=== PATIENT | male | born 1940 | race Caucasian/White ===

== ENCOUNTER 2023-01-24 16:40 | Emergency (ER) | payer MEDICARE, SELFPAY ==
[2023-01-24 16:47] VITALS: BP 128/65; PULSE 99; RESP 18; TEMP 36.9; O2SAT 98; BMI 21.9
--- NOTE | 2023-01-24 16:50 | ED_ITS ---
HPI - Extremity Problem General Chief complaint: Extremity Problem, Nontraumatic Stated complaint: LEG PAIN, SWOLLEN Time Seen by Provider: 01/24/23 16:49 Source: patient and family Source comment: azerbaijani Limitations: language barrier History of Present Illness HPI Narrative: Patient presents to emergency department left medial ankle pain. Patient states he had an accident when he fell off a bridge appears ago. He states in the last week she's had increased pain to his left ankle. He has a history of a CVA which has caused him to become confused than normal. This is not an anything acute. Family states today he is complaining of increased pain and has not been able to walk because of the pain to his medial ankle. He has not taking anything at home for the pain. He denies any recent known injury. He denies any fever, chills, or cough. He denies any chest pain, or shortness of breath. He denies any paresthesias, or weakness. Related Data Previous Rx's Medication Instructions Recorded methylprednisolone 4 mg tablets in 4 mg PO DAILY #21 ea 01/24/23 a dose pack (Medrol (Onel)) Allergies Allergy/AdvReac Type Severity Reaction Status Date / Time No Known Drug Allergies Allergy Verified 01/24/23 16:58 Review of Systems ROS Status of ROS 10 or more systems reviewed and unremarkable except as noted in history and below Exam Narrative Exam Narrative: Nurses notes and vital signs reviewed and patient is not hypoxic. General: Nontoxic, Elderly, frail, chronically ill, and in no apparent distress. Skin: Warm, dry, no pallor noted. No Rash Head: Normocephalic, atraumatic. Neck: Supple, non-tender. Eye: Pupils are equal, round and EOMI. No scleral icterus. Ears, Nose, Mouth, and Throat: TM clear, no posterior oropharynx erythema or nasal mucosal hypertrophy, uvula is mid-line Oral mucosa is moist Cardiovascular: Regular Rate and Rhythm without murmur, gallop or rub. Respiratory: No accessory muscle use or respiratory distress. Lungs are clear to auscultation, no wheezing, rales or rhonchi Chest Wall: no tenderness Back: No midline thoracic or lumbar vertebral tenderness. No CVA tenderness Musculoskeletal: Tenderness to palpation to the distal tibia and superior medial malleolus on the left. There is no warmth, erythema, edema, proximal streaking noted. Patient is very tender to palpation and range of motion is limited by pain.No palpable cords, no popliteal tenderness, no lower extremity edema/swelling, dp +2, tp+2 GI: Abdomen is soft, non-distended. Normal bowel sounds. No masses appreciated. No tenderness to palpation. No rebound, guarding, or rigidity noted. Neurological: A&O x2. No cranial nerve dysfunction observed. poor memory, Moves all extremities. Psychiatric: Cooperative and interactive. Normal mood and affect. Constitutional Vital Signs, click to edit/add: Last Vital Signs Temp 98.4 F 01/24/23 16:47 Pulse 100 H 01/24/23 18:14 Resp 18 01/24/23 18:14 BP 108/67 01/24/23 18:14 Pulse Ox 97 01/24/23 18:14 O2 Del Method Room Air 01/24/23 16:47 Course Vital Signs Vital signs: Vital Signs Temperature 98.4 F 01/24/23 16:47 Pulse Rate 99 H 01/24/23 16:47 Respiratory Rate 18 01/24/23 16:47 Blood Pressure 128/65 H 01/24/23 16:47 Pulse Oximetry 98 01/24/23 16:47 Oxygen Delivery Method Room Air 01/24/23 16:47 Temperature 98.4 F 01/24/23 16:47 Pulse Rate 100 H 01/24/23 18:14 Respiratory Rate 18 01/24/23 18:14 Blood Pressure 108/67 01/24/23 18:14 Pulse Oximetry 97 01/24/23 18:14 Oxygen Delivery Method Room Air 01/24/23 16:47 MDM - Extremity (Nontraumatic) MDM Narrative Medical decision making narrative: Patient is a poor historian. He is very hard of hearing. Because he has slight tachycardia, blood work was ordered. And patient was given oral potassium and steroids. He felt better and was able to ambulate. Patient is to follow up with primary care doctor. At this time the patient is without objective evidence of an acute process requiring hospitalization or inpatient management. The patient has remained hemodynamically stable. No additional indication for emergent studies at this time. I answered all questions. Discussed discharge instructions including standard anticipatory guidance and what should prompt a return to the emergency department, including if they get worse are not getting better or develops any new or concerning symptoms. I've given them specific time frame in which to follow-up, and who to follow-up with. The patient demonstrates understanding. Patient is nontoxic and stable for discharge with outpatient follow-up. This note was created with the assistance of a speech recognition program. Although the intention is to generate documents that actually reflects the content of the visit, no guarantees can be provided that every mistake has been identified and corrected by editing. Differential Diagnosis Differential diagnosis: Likely herpes zoster, gout, cellulitis, lower extremity edema and deep vein thrombosis of lower extremity Lab Data Attestation: I reviewed the patient's lab results. Labs: Lab Results 01/24/23 Range/Units 17:10 WBC 13.1 H (4.0-11.0) 10^3/uL RBC 3.92 L (4.70-6.10) 10^6/uL Hgb 13.3 L (14.0-18.0) g/dL Hct 37.1 L (42.0-54.0) % MCV 94.6 H (80.0-94.0) fL MCH 33.9 (25.9-34.0) pg MCHC 35.8 H (29.9-35.2) g/dL RDW 12.1 (11.0-15.0) % Plt Count 189 (150-450) 10^3/uL MPV 10.2 (9.5-13.5) fL Neut % (Auto) 81.7 H (43.0-75.0) % Lymph % (Auto) 12.4 L (20.5-60.0) % [place] % (Auto) 4.7 (1.7-12.0) % Eos % (Auto) 0.5 L (0.9-7.0) % Baso % (Auto) 0.3 (0.2-2.0) % Neut # (Auto) 10.7 H (1.4-6.5) 10^3/uL Lymph # (Auto) 1.6 (1.2-3.8) 10^3/uL [place] # (Auto) 0.6 (0.3-0.8) 10^3/uL Eos # (Auto) 0.1 (0.0-0.7) 10^3/uL Baso # (Auto) 0.0 (0.0-0.1) 10^3/uL Abs Immat Gran (auto) 0.05 H (0.00-0.03) 10^3/uL Imm/Tot Granulo (auto) 0.4 (0.0-0.5) % ESR 92 H (<=20) mm/hr Sodium 135 L (136-145) mmol/L Potassium 2.9 L* (3.5-5.1) mmol/L Chloride 97 L (98-107) mmol/L Carbon Dioxide 26.3 (21.0-32.0) mmol/L Anion Gap 14.6 BUN 12.0 (7.0-18.0) mg/dL Creatinine 1.10 (0.70-1.30) mg/dL Est GFR ( Amer) >60 (>=60) Est GFR (Non-Af Amer) >60 (>=60) BUN/Creatinine Ratio 10.9 Glucose 155 H (74-106) mg/dL Uric Acid 8.4 H (3.5-7.2) mg/dL Calcium 9.1 (8.5-10.1) mg/dL C-Reactive Protein 2.6 H (<=1.0) mg/dL Discharge Plan Discharge Chief Complaint: Extremity Problem, Nontraumatic Clinical Impression: Gout, Acute hypokalemia Patient Disposition: Home, Self-Care Time of Disposition Decision: 17:56 Condition: Good Mode of Transportation: Private Vehicle Prescriptions / Home Meds: New methylprednisolone [Medrol (Onel)] 4 mg tablets,dose pack 4 mg PO DAILY Qty: 21 0RF Print Language: Swedish Instructions: Potassium Content of Foods List (ED), Gout (ED) Stand Alone Forms: Portal Instructions Referrals: Physician,Non-Staff, MD [Primary Care Provider] - 1 week Discharge Date/Time: 01/24/23 18:27
--- NOTE | 2023-01-24 17:01 | XR_ITS ---
[address] [address] Patient Name: DEREK FARFAN MRN: [id number] date: 1940 Sex: M Assigned Patient Location: ER Current Patient Location: ED.MAIN Accession/Order Number: [id number] Exam Date: 01/24/2023 17:32 Report Date: 01/24/2023 18:12 At the request of: BALBIR MORA Procedure: XR ankle LT min 3V Exam: Radiographs: XR ankle LT min 3V Reason for exam: pain Comparison: None XR/XR ankle LT min 3V IMPRESSION: Mild soft tissue swelling. Degenerative changes scattered throughout the left ankle. Extensive atherosclerotic calcifications. Remainder of the left ankle is unremarkable. Electronically authenticated by: CRISTINA SIEGEL Date: 01/24/2023 18:12
[2023-01-24 17:18] LABS: Basophils Percent Auto 0.3 % (0.2-2.0); Eosinophils Absolute Auto 0.1 10^3/uL (0.0-0.7); Eosinophils Percent Auto 0.5 % (0.9-7.0); Hematocrit 37.1 % (42.0-54.0); Hemoglobin 13.3 g/dL (14.0-18.0); Immature Granulocytes Abs Auto 0.05 10^3/uL (0.00-0.03); Immature Granulocytes Pct Auto 0.4 % (0.0-0.5); Lymphocytes Absolute Auto 1.6 10^3/uL (1.2-3.8); Lymphocytes Percent Auto 12.4 % (20.5-60.0); Mean Corpuscular HGB Conc 35.8 g/dL (29.9-35.2); Mean Corpuscular Hemoglobin 33.9 pg (25.9-34.0); Mean Corpuscular Volume 94.6 fL (80.0-94.0); Mean Platelet Volume 10.2 fL (9.5-13.5); Monocytes Absolute Auto 0.6 10^3/uL (0.3-0.8); Monocytes Percent Auto 4.7 % (1.7-12.0); Neutrophils Absolute Auto 10.7 10^3/uL (1.4-6.5); Neutrophils Percent Auto 81.7 % (43.0-75.0); Platelet Count 189 10^3/uL (150-450); Red Blood Count 3.92 10^6/uL (4.70-6.10); Red Cell Distribution Width 12.1 % (11.0-15.0); White Blood Count 13.1 10^3/uL (4.0-11.0)
[2023-01-24 17:28] LABS: Erythrocyte Sedimentation Rate 92 mm/hr (<=20)
[2023-01-24 17:32] LABS: Anion Gap 14.6; BUN Creatinine Ratio 10.9; C Reactive Protein 2.6 mg/dL (<=1.0); Calcium 9.1 mg/dL (8.5-10.1); Carbon Dioxide 26.3 mmol/L (21.0-32.0); Chloride 97 mmol/L (98-107); Estimated GFR (African America >60 (>=60); Estimated GFR (Non-African Ame >60 (>=60); Glucose 155 mg/dL (74-106); Sodium 135 mmol/L (136-145); Uric Acid 8.4 mg/dL (3.5-7.2)
[2023-01-24 17:34] LABS: Potassium 2.9 mmol/L (3.5-5.1)
[2023-01-24] MEDS: KETOROLAC TROMETHAMINE 30 MG/ML VIAL 15 MG IVP (17:41)
[2023-01-24 18:14] VITALS: BP 108/67; PULSE 100; RESP 18; O2SAT 97
[2023-01-24] MEDS: ACETAMINOPHEN 500 MG TABLET 1000 MG PO (18:16)
[2023-01-24] MEDS: POTASSIUM BICARBONATE/CIT 25 MEQ TABLET EFF 50 MEQ PO (18:17)
[2023-01-24] MEDS: METHYLPREDNISOLONE SOD SUCC PF 125 MG/2 ML VIAL IVP (18:17)
== END 2023-01-24 18:27 | disposition home or self-care (01) ==
PROVIDERS: Emergency Provider Emergency Medicine
DX: M10.9 Gout, unspecified (principal); E87.6 Hypokalemia; Z86.73 Personal history of transient ischemic attack (TIA), and cerebral infarction without residual deficits
CPT/HCPCS: 36415; 73610; 80048; 84550; 85025; 85652; 86140; 96374; 96375; 99285; J2930

== ENCOUNTER 2023-03-27 15:00 | Emergency (ER) | payer MEDICARE, SELFPAY ==
[2023-03-27] VITALS (18 sets, daily range): BP systolic 114–123; BP diastolic 67–82; PULSE 88–106; RESP 14–29; TEMP 36.8; O2SAT 97–100; BMI 22.1
--- NOTE | 2023-03-27 | XR_ITS ---
The [address] [address] Patient Name: DEREK FARFAN MRN: [id number] date: 1940 Sex: M Assigned Patient Location: ER Current Patient Location: ER Accession/Order Number: [id number] Exam Date: 03/27/2023 16:00 Report Date: 03/27/2023 17:19 At the request of: YANIRA VÁSQUEZ Procedure: XR acute abdomen series EXAM TYPE: XR acute abdomen series EXAM DATE AND TIME: 03/27/2023 1:00 PM PDT INDICATION: 82 years old Male with COMPARISON: None. TECHNIQUE: Frontal view of the chest. Supine and upright views of the abdomen. FINDINGS: No pneumothorax, pleural effusion or focal consolidation. Heart size is within normal limits. Normal nonobstructive bowel gas pattern. No subdiaphragmatic free intraperitoneal air. No pathologic calcifications. Visualized osseous structures appear unremarkable. XR/XR acute abdomen series IMPRESSION: Nonspecific abdomen. Electronically authenticated by: Kevin ELLIS Date: 03/27/2023 17:19
--- NOTE | 2023-03-27 15:19 | XR_ITS ---
The [address] [address] Patient Name: DEREK FARFAN MRN: [id number] date: 1940 Sex: M Assigned Patient Location: ER Current Patient Location: ER Accession/Order Number: [id number] Exam Date: 03/27/2023 16:00 Report Date: 03/27/2023 16:52 At the request of: AIDAN DEVI Procedure: XR knee LT 4V IMAGES REVIEWED: XR knee LT 4V COMPARISON: None available. CLINICAL INDICATION: Fall FINDINGS/IMPRESSION: 1. No evidence of acute osseous abnormality of the left knee. 2. Limited lateral view with no large effusion. 3. Osteopenia. Mild degenerative change. Chondrocalcinosis. Electronically authenticated by: PASCUAL CAM Date: 03/27/2023 16:52
--- NOTE | 2023-03-27 15:20 | ECG_ITS ---
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
--- NOTE | 2023-03-27 15:21 | ED.GENADUL1 ---
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 He has a history of CVA per previous emergency room documentation and is confused at baseline. He is primarily Azerbaijani-speaking. He is not accompanied by his daughter who is currently working. 911 was contacted by the patient's neighbor stating that he was having difficulty breathing although on arrival patient is speaking and breathing easily. 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 He states his left knee is hurting him after a fall although he is not able to report any other associated injuries. He denies chest pain. EMS reported that the patient complained of upper abdominal pain although after multiple questions, the patient states he is having difficulty having a bowel movement. He has not had any fevers or vomiting. History is otherwise limited. Related Data Previous Rx's Medication Instructions Recorded methylprednisolone 4 mg tablets in 4 mg PO DAILY #21 ea 01/24/23 a dose pack (Medrol (Onel)) Allergies Allergy/AdvReac Type Severity Reaction Status Date / Time No Known Drug Allergies Allergy Verified 01/24/23 16:58 Review of Systems ROS Constitutional Denies: fever or chills Ears, nose, mouth, and throat Denies: throat pain Cardiovascular Denies: chest pain Respiratory Reports: shortness of breath; Denies: cough Gastrointestinal Reports: abdominal pain; Denies: nausea or vomiting Musculoskeletal Reports: extremity pain; Denies: back pain Integumentary/Breast Denies: rash Neurological Denies: headache Hematologic/Lymphatic Denies: easy bruising Exam Narrative Exam Narrative: Gen.: Awake, alert, in no distress Head: Normocephalic, atraumatic ENT: Moist mucous membranes Respiratory: No respiratory distress, lungs clear bilaterally Cardio: Regular rate and rhythm Gastrointestinal: Abdomen is soft, nondistended and nontender to palpation Extremities: Moves extremities equally, no appreciable edema or ecchymosis of the left knee, minimally tender in the left medial knee. No joint effusion noted. No bony tenderness of the left ankle or left hip. Pelvis is stable. Psych: Normal mood and affect Neuro: No slurred speech, no unilateral weakness Skin: Warm, dry, intact Constitutional Vital Signs, click to edit/add: Last Vital Signs Temp 98.3 F 03/27/23 15:04 Pulse 92 H 03/27/23 16:28 Resp 18 03/27/23 16:28 BP 114/68 03/27/23 16:28 Pulse Ox 99 03/27/23 16:28 O2 Del Method Room Air 03/27/23 15:27 Course Vital Signs Vital signs: Vital Signs Blood Pressure 123/82 03/27/23 15:01 Temperature 98.3 F 03/27/23 15:04 Pulse Rate 92 H 03/27/23 16:28 Respiratory Rate 18 03/27/23 16:28 Blood Pressure 114/68 03/27/23 16:28 Pulse Oximetry 99 03/27/23 16:28 Oxygen Delivery Method Room Air 03/27/23 15:27 Medical Decision Making MDM Narrative Medical decision making narrative: Patient maintains normal cardiac monitoring, normal vital signs and had no focal medical complaints while in the Emergency Room. We had significant difficulty obtaining history from him, but we contacted his granddaughter who presented to the Emergency Room. She has no additional significant focal medical complaints other than the patient is chronically breathing heavy. She requested a chest x-ray. Patient has not had any recent illness. He did not complain of abdominal pain, chest pain in the Emergency Room. He has had no vomiting. He rested comfortably throughout his stay in the Emergency Room. He has baseline confusion from his previous CVA. Lab studies obtained with minimal elevation of lactic acid, the remainder of his lab studies are improved from previous. Chest x-ray, abdominal x-rays with no evidence of acute cardiopulmonary process or abdominal abnormalities. X-rays of the knee with no evidence of acute fracture or dislocation. Left knee was wrapped with an Moe wrap and patient remains neurovascularly intact. Patient's granddaughter is comfortable taking him home, they will follow-up with PCP. Return to the Emergency Room if symptoms change or worsen. Medical Records Medical records reviewed: Yes I reviewed the patient's medical records Lab Data Lab results reviewed: Yes I reviewed the patient's lab results Labs: Lab Results 03/27/23 Range/Units 15:23 WBC 9.0 (4.0-11.0) 10^3/uL RBC 3.77 L (4.70-6.10) 10^6/uL Hgb 12.9 L (14.0-18.0) g/dL Hct 37.5 L (42.0-54.0) % MCV 99.5 H (80.0-94.0) fL MCH 34.2 H (25.9-34.0) pg MCHC 34.4 (29.9-35.2) g/dL RDW 13.1 (11.0-15.0) % Plt Count 221 (150-450) 10^3/uL MPV 10.6 (9.5-13.5) fL Neut % (Auto) 64.1 (43.0-75.0) % Lymph % (Auto) 27.3 (20.5-60.0) % [place] % (Auto) 6.0 (1.7-12.0) % Eos % (Auto) 2.0 (0.9-7.0) % Baso % (Auto) 0.4 (0.2-2.0) % Neut # (Auto) 5.8 (1.4-6.5) 10^3/uL Lymph # (Auto) 2.5 (1.2-3.8) 10^3/uL [place] # (Auto) 0.5 (0.3-0.8) 10^3/uL Eos # (Auto) 0.2 (0.0-0.7) 10^3/uL Baso # (Auto) 0.0 (0.0-0.1) 10^3/uL Abs Immat Gran (auto) 0.02 (0.00-0.03) 10^3/uL Imm/Tot Granulo (auto) 0.2 (0.0-0.5) % Sodium 139 (136-145) mmol/L Potassium 3.6 (3.5-5.1) mmol/L Chloride 101 (98-107) mmol/L Carbon Dioxide 28.8 (21.0-32.0) mmol/L Anion Gap 12.8 BUN 16.0 (7.0-18.0) mg/dL Creatinine 1.00 (0.70-1.30) mg/dL Est GFR ( Amer) >60 (>=60) Est GFR (Non-Af Amer) >60 (>=60) BUN/Creatinine Ratio 16.0 Glucose 153 H (74-106) mg/dL Lactate 2.2 H* (0.4-2.0) mmol/L Calcium 9.0 (8.5-10.1) mg/dL Total Bilirubin 0.6 (0.2-1.0) mg/dL AST 19 (15-37) U/L ALT 19 (16-63) U/L Alkaline Phosphatase 84 (46-116) U/L Troponin I High Sens 4.6 (4.0-76.1) pg/mL NT-Pro-B Natriuret Pep 302.0 (<=1800.0) pg/mL Total Protein 7.9 (6.4-8.2) g/dL Albumin 3.6 (3.4-5.0) g/dL Globulin 4.3 g/dL Albumin/Globulin Ratio 0.8 Lipase 86.0 (73.0-393.0) U/L Imaging Data XR knee: Attestation: I have reviewed the pertinent imaging results. Radiologist's impression: Procedure: XR knee LT 4V IMAGES REVIEWED: XR knee LT 4V COMPARISON: None available. CLINICAL INDICATION: Fall FINDINGS/IMPRESSION: 1. No evidence of acute osseous abnormality of the left knee. 2. Limited lateral view with no large effusion. 3. Osteopenia. Mild degenerative change. Chondrocalcinosis. Electronically authenticated by: PASCUAL CAM Date: 03/27/2023 16:52 Abdominal x-ray: Attestation: I have reviewed the pertinent imaging results. Radiologist's impression: Procedure: XR acute abdomen series EXAM TYPE: XR acute abdomen series EXAM DATE AND TIME: 03/27/2023 1:00 PM PDT INDICATION: 82 years old Male with COMPARISON: None. TECHNIQUE: Frontal view of the chest. Supine and upright views of the abdomen. FINDINGS: No pneumothorax, pleural effusion or focal consolidation. Heart size is within normal limits. Normal nonobstructive bowel gas pattern. No subdiaphragmatic free intraperitoneal air. No pathologic calcifications. Visualized osseous structures appear unremarkable. IMPRESSION: Nonspecific abdomen. Electronically authenticated by: Kevin ELLIS Date: 03/27/2023 17:19 ECG Data Attestation: I personally reviewed and interpreted this ECG as follows: (Sinus tachycardia at a rate of 101, artifact present, no ST elevation or ectopy noted. EKG reviewed by attending physician) Discharge Plan Discharge Chief Complaint: Abdominal Pain Clinical Impression: Acute pain of left knee Patient Disposition: Home, Self-Care Time of Disposition Decision: 17:29 Condition: Good Prescriptions / Home Meds: No Action methylprednisolone [Medrol (Onel)] 4 mg tablets,dose pack 4 mg PO DAILY Qty: 21 0RF Instructions: Knee Pain (ED) Stand Alone Forms: Portal Instructions Referrals: Physician,Non-Staff, MD [Primary Care Provider] - 1 week
[2023-03-27 15:40] LABS: Basophils Percent Auto 0.4 % (0.2-2.0); Eosinophils Absolute Auto 0.2 10^3/uL (0.0-0.7); Hematocrit 37.5 % (42.0-54.0); Hemoglobin 12.9 g/dL (14.0-18.0); Immature Granulocytes Abs Auto 0.02 10^3/uL (0.00-0.03); Immature Granulocytes Pct Auto 0.2 % (0.0-0.5); Lymphocytes Absolute Auto 2.5 10^3/uL (1.2-3.8); Lymphocytes Percent Auto 27.3 % (20.5-60.0); Mean Corpuscular HGB Conc 34.4 g/dL (29.9-35.2); Mean Corpuscular Hemoglobin 34.2 pg (25.9-34.0); Mean Corpuscular Volume 99.5 fL (80.0-94.0); Mean Platelet Volume 10.6 fL (9.5-13.5); Monocytes Absolute Auto 0.5 10^3/uL (0.3-0.8); Neutrophils Absolute Auto 5.8 10^3/uL (1.4-6.5); Neutrophils Percent Auto 64.1 % (43.0-75.0); Platelet Count 221 10^3/uL (150-450); Red Blood Count 3.77 10^6/uL (4.70-6.10); Red Cell Distribution Width 13.1 % (11.0-15.0)
[2023-03-27 16:04] LABS: Alanine Aminotransferase 19 U/L (16-63); Albumin Globulin Ratio 0.8; Albumin Level 3.6 g/dL (3.4-5.0); Alkaline Phosphatase 84 U/L (46-116); Anion Gap 12.8; Aspartate Amino Transferase 19 U/L (15-37); Bilirubin Total 0.6 mg/dL (0.2-1.0); Carbon Dioxide 28.8 mmol/L (21.0-32.0); Chloride 101 mmol/L (98-107); Estimated GFR (African America >60 (>=60); Estimated GFR (Non-African Ame >60 (>=60); Globulin 4.3 g/dL; Glucose 153 mg/dL (74-106); Potassium 3.6 mmol/L (3.5-5.1); Sodium 139 mmol/L (136-145); Total Protein 7.9 g/dL (6.4-8.2); Troponin I High Sensitivity 4.6 pg/mL (4.0-76.1)
[2023-03-27 16:13] LABS: Lactate/Lactic Acid 2.2 mmol/L (0.4-2.0)
== END 2023-03-27 17:44 | disposition home or self-care (01) ==
PROVIDERS: Physician Assistant; Emergency Provider Emergency Medicine Emergency Medical Services
DX: M25.562 Pain in left knee (principal); Z86.73 Personal history of transient ischemic attack (TIA), and cerebral infarction without residual deficits; Z91.81 History of falling
CPT/HCPCS: 36415; 73564; 74022; 80053; 83605; 83690; 83880; 84484; 85025; 93005; 99285